=== PATIENT | female | born 1935 | race Caucasian/White ===

== ENCOUNTER 2018-06-26 20:42 | Inpatient (IN) | payer MEDICARE ==
[~2018-06-26] VITALS: Ht 167.6 cm; Wt 70.0 kg
[2018-06-26] MEDS ORDERED: ASPIRIN 81 MG TABLET CHEW PO ONE (21:00)
[2018-06-26] MEDS ORDERED: SODIUM CHLORIDE FLUSH 10ML SYR IVF ONE (21:00)
[2018-06-26 21:10] LABS: BASOPHILS # (AUTO) 0.03 x10^3/uL (0-0.1); BASOPHILS % (AUTO) 1 % (0-1); EOSINOPHILS # (AUTO) 0.06 x10^3/uL (0-0.4); EOSINOPHILS % (AUTO) 1 % (1-7); LYMPHOCYTES # (AUTO) 1.42 x10^3/uL (1-3.4); LYMPHOCYTES % (AUTO) 23 % (22-44); MD NO; MEAN CORPUSCULAR HEMOGLOBIN 31.7 pg (27.0-34.8); MEAN CORPUSCULAR HGB CONC 33.4 g/dL (32.4-35.8); MEAN PLATELET VOLUME 8.1 fL (7.4-10.4); MONOCYTES # (AUTO) 0.74 x10^3/uL (0.2-0.8); MONOCYTES % (AUTO) 12 % (2-9); NEUTROPHILS # (AUTO) 3.95 x10^3/uL (1.8-6.8); NEUTROPHILS % (AUTO) 64 % (42-75); PLATELET COUNT 229 x10^3/uL (130-400); RED BLOOD COUNT 4.47 x10^6/uL (3.82-5.3); RED CELL DISTRIBUTION WIDTH 12.8 % (9.6-15.2)
[2018-06-26 21:21] LABS: ALANINE AMINOTRANSFERASE 72 U/L (12-78); ALBUMIN 3.4 g/dL (3.4-5.0); ANION GAP 8 mmol/L (5-15); CALCIUM 8.5 mg/dL (8.5-10.1); CHLORIDE 107 mmol/L (98-107); CREATININE 1.25 mg/dL (0.55-1.02)
[2018-06-26 21:25] LABS: ALKALINE PHOSPHATASE 104 U/L (45-117); BILIRUBIN,TOTAL 0.4 mg/dL (0.2-1.0); TOTAL PROTEIN 6.6 g/dL (6.4-8.2); TROPONIN I < 0.015 ng/mL (0.000-0.045)
[2018-06-26 21:28] LABS: INTERNATIONAL NORMALIZED RATIO 1.57 (0.93-1.1)
[2018-06-26] MEDS ORDERED: ASPIRIN 81 MG TABLET EC ONE (21:54)
[2018-06-26 22:13] LABS: MICROSCOPIC AUTO
[2018-06-26 22:15] LABS: CULTURE INDICATED? YES
[2018-06-26] MEDS ORDERED: WARF1TAB PO (22:41)
[2018-06-26] MEDS ORDERED: THYR60TA PO (22:52)
[2018-06-26] MEDS ORDERED: METO25TA35 PO (22:52)
[2018-06-26] MEDS ORDERED: PRAS50TA PO (23:03)
[2018-06-26] MEDS ORDERED: NIAC100T3 PO (23:03)
[2018-06-26] MEDS ORDERED: CHOL200024 PO (23:03)
[2018-06-26] MEDS ORDERED: FLAX10004 PO (23:03)
[2018-06-26] MEDS ORDERED: LACT1CAP61 PO (23:03)
[2018-06-26] MEDS ORDERED: WARF1TAB74 PO (23:07)
[2018-06-26] MEDS ORDERED: BISACODYL 10 MG SUPP PR PRN (23:30)
[2018-06-26] MEDS ORDERED: ACETAMINOPHEN 325 MG TABLET PO PRN (23:30)
[2018-06-26] MEDS ORDERED: NITROGLYCERIN 0.4 MG BOTTLE (25 TABS) SL PRN (23:30)
[2018-06-26] MEDS ORDERED: ONDANSETRON ODT 4 MG PO PRN (23:30)
[2018-06-26] MEDS ORDERED: POLYETHYLENE GLYCOL 17 GM PACKET PO PRN (23:30)
[2018-06-26] MEDS ORDERED: morphine SULFATE 10 MG/ML, 1ML IVPush PRN (23:30)
[2018-06-27] MEDS ORDERED: METO50TA6 PO (00:03)
[2018-06-27] MEDS: ENOXAPARIN 80 MG/0.8 ML SQ SCH ×3 (00:13→23:28)
[2018-06-27] MEDS: SODIUM CHLORIDE FLUSH 10ML SYR IVF SCH ×3 (00:18→23:28)
[2018-06-27 00:24] VITALS: BP 146/84
[2018-06-27 02:49] VITALS: BP 146/84
[2018-06-27 03:09] LABS: BASOPHILS # (AUTO) 0.04 x10^3/uL (0-0.1); BASOPHILS % (AUTO) 1 % (0-1); EOSINOPHILS # (AUTO) 0.06 x10^3/uL (0-0.4); EOSINOPHILS % (AUTO) 1 % (1-7); LYMPHOCYTES # (AUTO) 1.11 x10^3/uL (1-3.4); LYMPHOCYTES % (AUTO) 22 % (22-44); MD NO; MEAN CORPUSCULAR HEMOGLOBIN 31.2 pg (27.0-34.8); MEAN CORPUSCULAR HGB CONC 33.2 g/dL (32.4-35.8); MEAN CORPUSCULAR VOLUME 94.1 fL (80-100); MEAN PLATELET VOLUME 8.1 fL (7.4-10.4); MONOCYTES # (AUTO) 0.64 x10^3/uL (0.2-0.8); MONOCYTES % (AUTO) 13 % (2-9); NEUTROPHILS # (AUTO) 3.28 x10^3/uL (1.8-6.8); NEUTROPHILS % (AUTO) 64 % (42-75); PLATELET COUNT 205 x10^3/uL (130-400); RED BLOOD COUNT 4.27 x10^6/uL (3.82-5.3); RED CELL DISTRIBUTION WIDTH 12.8 % (9.6-15.2)
[2018-06-27 03:20] LABS: ALBUMIN 3.2 g/dL (3.4-5.0); ANION GAP 8 mmol/L (5-15); CALCIUM 8.2 mg/dL (8.5-10.1); CHLORIDE 111 mmol/L (98-107)
[2018-06-27 03:27] LABS: ALANINE AMINOTRANSFERASE 58 U/L (12-78); ALKALINE PHOSPHATASE 93 U/L (45-117); BILIRUBIN,TOTAL 0.3 mg/dL (0.2-1.0); CHOL/HDL RATIO 4.6; CHOLESTEROL, TOTAL 237 mg/dL (140-239); CREATININE 0.93 mg/dL (0.55-1.02); HDL CHOL % 22 % (28-40); HDL CHOLESTEROL (DIRECT) 52 mg/dL (40-60); LDL CHOLESTEROL,CALCULATED 168 mg/dL (54-169); LDL/HDL RATIO 3.2 (0.5-3.0); TRIGLYCERIDES 87 mg/dL (50-200); TROPONIN I 0.016 ng/mL (0.000-0.045); VLDL CHOLESTEROL 17 mg/dL (0-25)
[2018-06-27] MEDS: ASPIRIN 81 MG TABLET EC PO SCH (05:41)
[2018-06-27] MEDS: THYROID 30 MG TABLET PO SCH (05:41)
[2018-06-27] MEDS: SENNA/DOCUSATE TABLET PO SCH (07:33)
[2018-06-27] MEDS: NIACIN 100 MG HOMEMEDPO SCH (07:58)
[2018-06-27 07:59] VITALS: BP 129/85
[2018-06-27] MEDS: LACTOBACILLUS CHEW TABLET PO SCH (08:05)
[2018-06-27] MEDS: METOPROLOL TARTRATE 25 MG TABLET PO SCH (08:05)
[2018-06-27] MEDS: CHOLECALCIFEROL 1,000 UNIT TABLET PO SCH (08:05)
[2018-06-27] MEDS ORDERED: REGADENOSON 0.4 MG/5 ML SYRINGE ONE (08:45)
[2018-06-27] MEDS ORDERED: PRASTERONE PO SCH (09:00)
[2018-06-27] MEDS ORDERED: FLAXSEED OIL PO SCH (09:00)
[2018-06-27] MEDS ORDERED: WARFARIN SODIUM 5 MG PO SCH (09:00)
[2018-06-27] MEDS ORDERED: WARFARIN SODIUM 1 MG PO SCH (09:00)
[2018-06-27 09:04] LABS: INTERNATIONAL NORMALIZED RATIO 1.72 (0.93-1.1); PROTHROMBIN TIME 17.5 Seconds (9.6-11.5)
[2018-06-27 09:13] LABS: TROPONIN I < 0.015 ng/mL (0.000-0.045)
[2018-06-27 13:04] VITALS: BP 132/79
[2018-06-27] MEDS ORDERED: WARFARIN 3 MG TABLET PO-COUM SCH (18:00)
[2018-06-27 19:27] VITALS: BP 116/82
[2018-06-28 03:03] VITALS: BP 136/83
[2018-06-28] MEDS: THYROID 30 MG TABLET PO SCH (05:25)
[2018-06-28] MEDS: ASPIRIN 81 MG TABLET EC PO SCH (05:25)
[2018-06-28 07:25] VITALS: BP 135/83
[2018-06-28] MEDS: NIACIN 100 MG HOMEMEDPO SCH (08:27)
[2018-06-28] MEDS: SENNA/DOCUSATE TABLET PO SCH (08:27)
[2018-06-28] MEDS: LACTOBACILLUS CHEW TABLET PO SCH (08:37)
[2018-06-28] MEDS: METOPROLOL TARTRATE 25 MG TABLET PO SCH (08:37)
[2018-06-28] MEDS: SODIUM CHLORIDE FLUSH 10ML SYR IVF SCH (08:37)
[2018-06-28] MEDS: CHOLECALCIFEROL 1,000 UNIT TABLET PO SCH (08:37)
[2018-06-28 08:53] LABS: INTERNATIONAL NORMALIZED RATIO 1.64 (0.93-1.1); PROTHROMBIN TIME 16.7 Seconds (9.6-11.5)
[2018-06-28] MEDS: ENOXAPARIN 80 MG/0.8 ML SQ SCH (11:23)
== END 2018-06-28 12:55 | disposition home or self-care (01) | DRG 313 ==
LOC: ED 23:15 → EDIP 23:20 → 5SO 23:33 → DCLOUNGE 06-28 12:43
PROVIDERS: ADMIT Internal Medicine; ATTEND Internal Medicine
DX: R07.89 Other chest pain (principal); D68.69 Other thrombophilia; N17.9 Acute kidney failure, unspecified; F41.9 Anxiety disorder, unspecified; I48.2 Chronic atrial fibrillation; E03.9 Hypothyroidism, unspecified; I10 Essential (primary) hypertension; Z66 Do not resuscitate; Z79.01 Long term (current) use of anticoagulants; Z86.73 Personal history of transient ischemic attack (TIA), and cerebral infarction without residual deficits; Z91.018 Allergy to other foods
CPT/HCPCS: 36415; 70450; 71045; 78452; 80053; 80061; 81001; 84439; 84443; 84484; 85025; 85610; 85730; 87086; 93005; 93017; 93306; 99285; G0378; J1650; J2785; A9502; C9898